=== PATIENT | female | born 1990 | race Caucasian/White ===

== ENCOUNTER 2021-09-08 00:53 | Emergency (ER) | payer OTHER ==
[2021-09-08 01:36] LABS: HEMOGLOBIN 14.3 gm/dl (12.3-15.3); RED BLOOD COUNT 4.69 M/UL (4.00-5.10); WHITE BLOOD COUNT 9.3 K/UL (4.5-11.0)
[2021-09-08 02:06] LABS: BUN/CREATININE RATIO 17 (0-10)
[2021-09-08] MEDS ORDERED: OMNICEF 300 MG300 MG PO (07:59)
== END 2021-09-08 08:30 | disposition home or self-care (01) ==
LOC: ER1 00:53
PROVIDERS: Emergency Medicine
DX: K76.0 Fatty (change of) liver, not elsewhere classified (principal); N83.201 Unspecified ovarian cyst, right side; K21.9 Gastro-esophageal reflux disease without esophagitis; I10 Essential (primary) hypertension; Z90.89 Acquired absence of other organs
CPT/HCPCS: 80053; 81001; 83690; 84703; 85025; 87086; 99284; Q9967

== ENCOUNTER → 2021-11-02 | Outpatient (CLI) | payer BC ==
[~2021-11-02] MED LIST: OMNICEF 300 MG300 MG PO
== END ==
LOC: KOH-I 15:22
DX: R14.0 Abdominal distension (gaseous) (principal); R14.3 Flatulence
CPT/HCPCS: 74018